=== PATIENT | female | born 1960 | race Caucasian/White ===

== ENCOUNTER → 2018-03-08 | Outpatient (CLI) | payer OTHER ==
[~2018-03-08] MED LIST: BCPILLS PO; GADAVIST IV PRN
--- NOTE | 2018-03-08 12:40 | DIAGNOSTIC IMAGING REPORT ---
L LOWER EXT JOINT COMBO CLINICAL HISTORY: ANKLE PAIN pain TECHNIQUE: Multiaxial MRI acquisition COMPARISON STUDY: None FINDINGS: There are findings of severe degenerative change of the ankle mortise. There is extensive subchondral cystic change involving the distal tibia articular surface as well as the dome of the talus. There may be partial degenerative fusion. Subtalar joint appears to be intact. The may be a partial tear of the interosseous ligament. Signal characteristics of the remaining osseous structures show moderate degenerative changes of the articular services. There is no significant bone marrow replacing process. All major ligamentous and tendinous structures appear intact. Medial and lateral collateral ligament structures are grossly intact. There is a slight degree of soft tissue edema about the ankle. This may be reactive. IMPRESSION: 1. 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 Virtual complete loss of joint space with considerable subchondral cystic change involving the talar dome and distal tibia. 3. Mild degenerative change of all additional osseous structures 4. No evidence for a significant ligamentous or tendinous disruption. 5. Minimal soft tissue edema about the ankle which is most likely reactive. The above report was generated using voice recognition software. It may contain grammatical, syntax or spelling errors. Electronically signed by: Seth Putnam M.D. 03/08/2018 12:38 PM Dictated Date/Time: 03/08/2018 12:32 PM
== END | disposition home or self-care (01) ==
LOC: C.MRI 10:15
PROVIDERS: ATTEND Podiatrist Foot & Ankle Surgery
DX: M77.8 Other enthesopathies, not elsewhere classified (principal); M19.072 Primary osteoarthritis, left ankle and foot; M79.662 Pain in left lower leg